=== PATIENT | female | born 1960 | race Caucasian/White ===

== ENCOUNTER 2017-12-28 07:30 | Day surgery (SDC) | payer MEDICAID, OTHER ==
[~2017-12-28 07:30] MED LIST: Lactated Ringers 1,000 ML IV SCH
[2017-12-28] MEDS ORDERED: Midazolam 1 MG/ML 2 ML SDV IV ONE (09:20)
[2017-12-28] MEDS ORDERED: Propofol 200 MG/20 ML SDV IV ONE (09:20)
--- NOTE | 2017-12-28 09:44 | PCM.OPNOTE ---
- General Post-Op/Procedure Note Date of Surgery/Procedure: 12/28/17 Operative Procedure(s): c scope Findings: normal colon Pre Op Diagnosis: hx of colon polyps Post-Op Diagnosis: nl exam Primary Surgeon: Miguel Angel Crane Anesthesia Provider: Joselin Borrego Pathology: none Complications: None Condition: Good Free Text/Narrative:: see dictation
--- NOTE | 2017-12-28 12:02 | OR ---
DATE OF OPERATION: 12/28/2017 SURGEON: Miguel Angel Crane MD PROCEDURE PERFORMED: Colonoscopy. PREOPERATIVE DIAGNOSIS: Personal history of colon polyps. POSTOPERATIVE DIAGNOSIS: Normal exam. INDICATIONS FOR PROCEDURE: This is a 57-year-old white female, who is referred for a followup colonoscopy. She has a personal history of colon polyps. She was offered and accepted C-scope. DESCRIPTION OF OPERATION: After an excellent IV sedation was administered, digital rectal exam was performed. No marked abnormality was noted. Flexible colonoscope was inserted and advanced without difficulty to the patient's cecum. The prep was excellent. The following findings were noted. Ascending colon was unremarkable. Transverse colon was unremarkable. Descending colon was unremarkable. Sigmoid and rectum were unremarkable. Colon was deflated as the scope was removed. The patient tolerated the procedure well. RECOMMENDATIONS: Repeat colonoscopy in 10 years. /[id number] /ROSANNE
== END 2017-12-28 10:50 | disposition home or self-care (01) ==
LOC: FB.SDS 07:30
PROVIDERS: ATTEND Surgery
DX: Z12.11 Encounter for screening for malignant neoplasm of colon (principal); F41.1 Generalized anxiety disorder; F32.9 Major depressive disorder, single episode, unspecified; Z90.710 Acquired absence of both cervix and uterus; Z80.0 Family history of malignant neoplasm of digestive organs; Z86.010 Personal history of colon polyps; Z79.51 Long term (current) use of inhaled steroids; Z79.899 Other long term (current) drug therapy; Z98.890 Other specified postprocedural states; Z96.652 Presence of left artificial knee joint
CPT/HCPCS: 45378; J2250; J2704; J7120